=== PATIENT | male | born 1975 | race Caucasian/White ===

== ENCOUNTER 2017-01-10 06:23 | Day surgery (SDC) | payer BC ==
[2017-01-08 17:13] LABS: HEMOGLOBIN 16.3 g/dL (13.6-17.8)
[2017-01-08 17:31] LABS: A/G RATIO 1.1 (0.7-1.9); ALBUMIN 3.9 G/DL (3.5-5.0); ALKALINE PHOSPHATASE 45 U/L (45-117); BUN (BLOOD UREA NITROGEN) 13 MG/DL (6-23); CALCIUM, SERUM 8.7 MG/DL (8.5-10.4); CHLORIDE, SERUM 105 MMOL/L (96-112); CO2 (CARBON DIOXIDE) 29 MMOL/L (24-34); CREATININE 1.49 MG/DL (0.70-1.30); GFR AFRICAN AMERICAN 67 ML/MIN (>=60); GFR NON AFRICAN AMERICAN 57 ML/MIN (>=60); GLOBULIN 3.4 G/DL (2.5-4.1); GLUCOSE, SERUM 86 MG/DL (60-99); POTASSIUM, SERUM 4.1 MMOL/L (3.5-5.3); SGOT(AST) 19 U/L (5-40); SGPT(ALT) 32 U/L (5-65); SODIUM, SERUM 141 MMOL/L (135-148); TOTAL BILIRUBIN 0.4 MG/DL (0-1.2); TOTAL PROTEIN 7.3 G/DL (6.0-8.5)
--- NOTE | ~2017-01-10 | OP ---
Record Of Operation [facility] [address] [place]. [address] NAME: VIOLA WOO : 75 STATUS : REG [facility] [place] PAT#: [id number] AGE: 41 ADM/REG DATE : 01/10/17 MR#: [id number] REPORT SERV DATE: 01/10/17 DICTATED BY: DEVIN HORNER DATE: 01/10/17 REPORT STATUS : Draft TRANSCRIBED BY: MODL DATE: 01/10/17 DATE OF PROCEDURE: 01/10/2017 PREOPERATIVE DIAGNOSIS: Umbilical hernia, not incarcerated. POSTOPERATIVE DIAGNOSIS: Umbilical hernia, not incarcerated. PROCEDURES: Mesh repair of non-incarcerated umbilical hernia. SURGEON: Devin Horner M.D. DESCRIPTION OF OPERATIVE PROCEDURE: The patient was brought to the operating suite, placed in supine position, underwent satisfactory general endotracheal anesthesia without incident. The skin of the abdomen was next scrubbed, prepped, and draped in usual sterile fashion. 0.5% Marcaine with epinephrine was utilized as supplemental local anesthesia. Initially, a curvilinear infraumbilical incision was performed dissecting through the skin and subcutaneous tissue. The patient did not have any incarceration. The subcutaneous tissue and skin was elevated off the midline fascial defect and a circumferential dissection on the fascia was performed. Next, the preperitoneal plug of fat in the defect, which was about 1 cm in diameter, was removed, and the peritoneal surface was cleaned of any underlying adhesions. A PVPM bicomponent mesh patch was chosen, it was placed in local anesthesia, folded up and placed in the peritoneal cavity. It was opened in the peritoneal space and withdrawn, impacting it into the underneath surface of the midline fascia. Stay sutures of 0 Ethibond were placed medially through the rectus sheath bilaterally incorporating the peritoneal layer of the patch in a U-stitch fashion. The suturing tails were trimmed in a "[id number]" interrupted vertical mattress fashion, the cephalad aspect of the midline fascia was drawn over the caudad aspect. The sutures were then tied down. Subcutaneous tissue was irrigated and closed with interrupted 3-0 Vicryl, running subcuticular stitch 4-0 Vicryl for the skin. Dermabond skin adhesive placed. The patient tolerated the procedure well and was returned to PACU in stable condition. Termination procedure, sponge, needle, lap, and instrument counts correct x3. ESTIMATED BLOOD LOSS: Less than 5 mL. WR/MODL Record Of Operation [facility] [address] [place]. [address] NAME: VIOLA WOO : 75 STATUS : REG [facility] [place] PAT#: [id number] AGE: 41 ADM/REG DATE : 01/10/17 MR#: [id number] REPORT SERV DATE: 01/10/17 DICTATED BY: DEVIN HORNER DATE: 01/10/17 REPORT STATUS : Draft TRANSCRIBED BY: MODMelo DATE: 01/10/17 Devin Horner M.D. / [id number] CC: Garo Delcid MD
[~2017-01-10 06:23] MED LIST: FOLIC PO; MULTIVITAMIN
== END 2017-01-10 23:59 | disposition home or self-care (01) ==
LOC: MSC 06:23
PROVIDERS: Specialist
PROC: 0WUF07Z Supplement Abdominal Wall with Autologous Tissue Substitute, Open Approach (ICD-10-PCS; principal; 2017-01-10 07:45)
DX: K42.9 Umbilical hernia without obstruction or gangrene (principal); G47.33 Obstructive sleep apnea (adult) (pediatric); F17.210 Nicotine dependence, cigarettes, uncomplicated
CPT/HCPCS: 80053; 85014; 85018; A9270-GY; C1781; J0690; J0735; J2250; J2405; J2710; J3010